=== PATIENT | male | born 1950 | race Caucasian/White ===

== ENCOUNTER → 2021-03-23 | Outpatient (CLI) | payer MEDICARE, OTHER | END | disposition home or self-care (01) | LOC: LABPAT 13:43 | PROVIDERS: ATTEND Orthopaedic Surgery Orthopaedic Surgery of the Spine | DX: Z01.812 Encounter for preprocedural laboratory examination (principal); M48.00 Spinal stenosis, site unspecified | CPT/HCPCS: 87070 ==

== ENCOUNTER 2021-03-27 11:22 | Day surgery (SDC) | payer MEDICARE, OTHER ==
[2021-03-23 10:31] VITALS: BMI 28.7
[~2021-03-27 11:22] MED LIST: DEXAMETHASONE SOD PHOSPHATE 4 MG/ML 1 ML VIAL IV ONE; LIDOCAINE 1% (10MG/ML) FOR IV START INTRADERMA PRN; MIDAZOLAM 2 MG/2 ML VIAL IV PRN; ONDANSETRON 4 MG/2 ML VIAL IVP ONE; ceFAZolin 1,000 MG in SODIUM CHLORIDE 0.9% IRRIGATIO 1,000 ML IRRIGATION PRN
[2021-03-27] MEDS: LACTATED RINGERS 1,000 ML IV SCH (12:20)
[2021-03-27] MEDS ORDERED: fentaNYL (PF) 50 MCG/ML 2 ML AMP ONE (13:53)
[2021-03-27] MEDS ORDERED: PROPOFOL 10 MG/ML 20 ML VIAL IV ONE (13:53)
[2021-03-27] MEDS ORDERED: ePHEDrine SULFATE/0.9% NACL/PF 50 MG/5 ML SYRINGE IV ONE (13:53)
[2021-03-27] MEDS ORDERED: PHENYLEPHRINE-0.9% NACL SYG 1,000 MCG/10 ML SYRINGE ONE (13:53)
[2021-03-27] MEDS ORDERED: SUCCINYLCHOLINE CHLORIDE 100 MG/5 ML SYR IV ONE (13:53)
[2021-03-27] MEDS ORDERED: MIDAZOLAM 2 MG/2 ML VIAL ONE (13:53)
[2021-03-27] MEDS ORDERED: VASOPRESSIN 20 UNIT/ML 1 ML VIAL ONE (13:53)
[2021-03-27] MEDS ORDERED: WATER FOR INJECTION, STERILE 10 ML VIAL IV ONE (13:53)
[2021-03-27] MEDS ORDERED: LIDOCAINE 1% INJ 10MG/ML (20 ML MDV) ONE (13:53)
[2021-03-27] MEDS ORDERED: LACTATED RINGERS 1,000 ML IV ONE ×5 (14:30→20:00)
[2021-03-27] MEDS ORDERED: THROMBIN (BOVINE) 5,000 UNIT VIAL TOPICAL ONE (14:31)
[2021-03-27] MEDS ORDERED: GELATIN SPONGE,ABSORB (LARGE) 1 EACH SPONGE TOPICAL ONE (14:31)
[2021-03-27] MEDS ORDERED: LIDOCAINE 2%-EPI 1:100,000 20 ML VIAL SQ ONE ×2 (14:31)
[2021-03-27] MEDS ORDERED: BENZOCAINE/MENTHOL LOZENG 1 EACH LOZENGE MUCOUS MEM PRN (17:54)
[2021-03-27] MEDS ORDERED: ACETAMINOPHEN TAB 325 MG TAB PO PRN (17:54)
[2021-03-27] MEDS ORDERED: HYDROmorphone 0.5 MG/0.5 ML SYRINGE IVP PRN (17:54)
[2021-03-27] MEDS ORDERED: ONDANSETRON 4 MG/2 ML VIAL IVP PRN (17:54)
[2021-03-27] MEDS ORDERED: MAGNESIUM HYDROXIDE 2,400 MG/10 ML CUP PO PRN (17:54)
[2021-03-27] MEDS ORDERED: CYCLOBENZAPRINE 10 MG TAB PO PRN (17:54)
[2021-03-27] MEDS ORDERED: SODIUM CHLORIDE 0.9% 1,000 ML IV SCH (18:00)
--- NOTE | 2021-03-27 18:02 | P.OP ---
Date of Procedure: 03/27/21 Preoperative Diagnosis: Severe spinal stenosis L3 4 L4 5, spondylolisthesis L4 5, lower extremity radiculopathy, lower extremity weakness, neurogenic claudication, degenerative disc disease Postoperative Diagnosis: Same Anesthesia: GETA Pathology: none sent Condition: stable Disposition: PACU Description of Procedure: DESCRIPTION OF PROCEDURE(S): BRIEF OPERATIVE NOTE Preoperative Diagnosis: Severe spinal stenosis L3 4 L4 5, spondylolisthesis L4 5, lower extremity radiculopathy, lower extremity weakness, neurogenic claudication, degenerative disc disease Postoperative Diagnosis:Severe spinal stenosis L3 4 L4 5, spondylolisthesis L4 5, lower extremity radiculopathy, lower extremity weakness, neurogenic claudication, degenerative disc disease Procedure: CT navigation intraoperatively for hardware placement Laminectomy and decompression L3 4 L4 5 with foraminotomies Minimally invasive Posterior lateral decompression and facet fusion L3 4 L4 5 Minimally invasive Transforaminal lumbar interbody fusion for a 360 fusion L3 4 L4 5 Discectomy for decompression L3 4 L4 5 Placement of interbody graft L3 4 L4 5 Local autogenous bone grafting Harvesting of bone marrow aspirate the pedicle of L3 on the right Use of Cell Saver Use of bone graft extenders Surgeon: Dr. Cuevas Clearance Cutter: Yang MCCLELLAN who is present throughout the entire the case persistence during positioning, dissection, exposure, visualization, and all crucial elements of the case as well as closure. Anesthesia: General anesthesia Estimated blood loss: Approximately 250 mL Complications: None apparent Components implanted: K2M minimally invasive [place] pedicle screw system with 6.5 x 50 mm screws 2 rods and 2 [place] interbody cages with bio4 osteo amp and DBX bone putty boats to supplemental local autogenous bone graft and bone marrow aspirate Disposition: To recovery room in good stable condition. OPERATIVE INDICATIONS The patient has had long-standing issues in their lower back and lower extremities. He was having worsening pain in his back and his lower extremity is with claudication and lower extremity radiculopathy with weakness. His found have severe stenosis L3 4 and L4 5 which correlated well with his low back and lower extremity symptoms. He is not having any lasting benefit despite aggressive conservative treatment and was having worsening symptoms despite his care. The patient has been through conservative treatment. We discussed various treatment options including surgery, and the patient wishes to proceed with surgery We discussed the risk, patient's alternatives and benefits of surgery including but not limited to, risk of bleeding risk of infection, risk of need for further surgery, risk of decreased, loss of motion, muscle function, malunion nonunion, hardware failure, nerve damage, paralysis, heart attack, blindness and . OPERATIVE SUMMARY After discussing all the risks, patient alternatives and benefits at length, the patient elected to proceed with surgical intervention, signed informed consent, and presented for their procedure. The patient was seen and examined in the preoperative holding area and the surgical site was marked. The patient was given antibiotics and brought to the operating room. The patient was sedated and intubated by anesthesia in standard fashion. The patient was positioned on to the operating room table in a prone position on the appropriate frame which was well-padded and well molded. We were careful to pad any bony prominences and pressure points. We were careful to maintain the patient's cervical spine and good neutral alignment and position throughout. The patient was prepped and draped in a normal standard fashion. An appropriate timeout and keystone protocol performed. We were able to proceed with the surgery. The local wound area was infiltrated with local anesthetic. I was able utilize C-arm guidance to establish appropriate position over the pedicles bilaterally at the appropriate levels at L3 4 and L4 5. With the appropriate levels confirmed was able to make small stab incisions over the appropriate pedicle sites bilaterally. Utilizing C-arm in his house able to establish a Jamshidi needle over the lateral aspect of the pedicle and advanced the trocar into the pedicle being careful not to breech superiorly inferiorly medially or laterally. Position was confirmed regularly with AP and lateral images on C-arm. I was able to establish the trocar into the pedicle appropriately into the posterior aspect of the vertebral body bilaterally at the appropriate levels at L3 and L4 5 bilaterally. This was done at each of the pedicle positions and each of the vertebrae. I was able place the guidewire into the trocar and into the vertebral body appropriately under C-arm guidance. Dissection was taken down over the wire to the appropriate starting position for the screw placed. The appropriate length screw was chosen, threaded over the guidewire and screwed appropriately into the pedicle and vertebral body under C- arm guidance in excellent alignment and position with good bony purchase. This is done at each of the screw sites at the appropriate levels at L3 4 and L4 5. With the screws intact I extended the incision to connect the screw hole sites on the most symptomatic side on the right. I dissected down to establish access over the pars and lamina to the base of the spinous process. I was able to expose the facet joint. The capsule the facet was taken down and showed some severe facet arthrosis at the joint. Note was made of severe's stenosis and severe thickening of ligamentum flavum. I was able to use a combination of curettes and Kerrison rongeurs and a high-speed drill to take down the facet joint and do a facetectomy. Partial laminectomy was also performed. I was able get excellent foraminal decompression and central decompression with undermining across midline to perform a laminectomy centrally and contralaterally. I was able get good central decompression. The ligamentum flavum was taken down to further decompress centrally and at bilateral neural foramen. I was able to expose the disc space and visualize the traversing nerve root. Note was made of some disc protrusion at the level causing further compression of the nerve root. I was able to establish a annulotomy at the appropriate level protecting soft tissue and neural structures. Note was made of some disc desiccation at the disc. I performed a complete discectomy with accommodation of curettes and rasps and scrapers. I was able get good endplate preparation at the disc space. I sized for the appropriate size interbody spacer protecting the soft tissue and neural structures. The wound was copiously irrigated and suctioned dry. There is no evidence of any dural tear or leak. I was able to pack the disc space with local autogenous bone graft as well as a small amount of bone graft which was also placed into the interbody cage itself. Protecting the soft tissue structures and neural structures I was able place the interbody cage in good alignment and good position with good fit and fill at the interbody space. His issues was confirmed with C-arm guidance. Good hemostasis maintained. There is no evidence of any dural tear or leak. The wound was irrigated and suctioned dry. This was done first at L4 5 and then at L3 4 similarly With the hardware intact, intraoperative C-arm imaging was again taken which showed good alignment and position of the hardware at the appropriate levels at L3 4 and 5. We were then able to measure, contour and place the rods and appropriate hardware bilaterally. I was able to place capcrews, tighten them down, and torque them with the torque screwdriver appropriately. With this intact I was able to place the local autogenous bone graft with additional bone graft enhancer as necessary into the posterior lateral gutters over the decorticated transverse processes. The remainder of the bone graft was placed over the facet joint on the contralateral side after taking down the facet joint capsule. With the bone graft intact, a stable construct, and good decompression at the appropriate levels, we were able to proceed with closure. Good hemostasis was maintained. There is no evidence of dural tear or leak. The fascia was closed for a watertight closure. he subcuticular tissue was closed with absorbable suture. The wound was cleaned and dried and dressed with the appropriate dressing. The drapes were broken down. The patient was gently rolled back onto their hospital bed being careful to maintain their cervical spine and good neutral alignment and position. They were woken up by anesthesia, extubated, and brought to the recovery room in good stable condition. The patient will be admitted to the hospital for appropriate postoperative care, medical management and monitoring. We will continue to follow them closely about the postoperative course.
[2021-03-27] MEDS: HYDROmorphone 0.5 MG/0.5 ML SYRINGE IVP PRN ×2 (18:09→19:07)
--- NOTE | 2021-03-27 20:54 | FL ---
EXAMINATION TYPE: FL guidance operating room DATE OF EXAM: 03/27/2021 HISTORY: Fluoroscopy time 40 seconds of fluoroscopy provided. IMPRESSION: 1. Fluoroscopy time.
[2021-03-27] MEDS: HYDROmorphone 1 MG/ML 1 ML SYRINGE IVP PRN (21:54)
[2021-03-27] MEDS ORDERED: ZOLPIDEM 10 MG TAB PO PRN (21:58)
[2021-03-28] MEDS: HYDROmorphone 1 MG/ML 1 ML SYRINGE IVP PRN (01:45)
[2021-03-28] MEDS: HYDROcodone/APAP 5-325MG 1 EACH TAB PO PRN ×2 (06:16→12:13)
[2021-03-28] MEDS ORDERED: ALBUTEROL NEBULIZED 2.5 MG/3 ML INHALATION SCH (08:00)
[2021-03-28 08:20] VITALS: RESP 18
[2021-03-28 08:40] VITALS: BP 138/73; PULSE 94; TEMP 97.9
--- NOTE | 2021-03-28 08:58 | P.DS ---
Providers Date of admission: 03/27/2021 Expected date of discharge: 03/28/21 Attending physician: Venu Cuevas Consults: 03/27/21 17:54 Consult Physician Routine Consulting Provider: Luke Pearce Consult Reason/Comments: Medical management Do you want consulting provider notified?: Yes Primary care physician: Emily Lewis - Discharge Diagnosis(es) (1) Lumbar spinal stenosis Current Visit: Yes Status: Acute (2) Spondylolisthesis at L4-L5 level Current Visit: Yes Status: Acute (3) Lumbar degenerative disc disease Current Visit: Yes Status: Acute (4) Radiculopathy with lower extremity symptoms Current Visit: Yes Status: Acute (5) Lower extremity weakness Current Visit: Yes Status: Acute (6) Hypertension Current Visit: Yes Status: Acute (7) Hyperlipidemia Current Visit: Yes Status: Acute (8) Status post lumbar spinal fusion Current Visit: Yes Status: Acute Hospital Course: This is a pleasant 70-year-old male who presented with L3-4 and L4-5 severe spinal canal stenosis, L4-5 spondylolisthesis, lower extremity radiculopathy and weakness, lumbar degenerative disc disease, and neurogenic claudication who failed outpatient conservative therapy. He was admitted for an L3-4 and L4-5 minimally invasive posterior lateral decompression and fusion with transforaminal lumbar interbody fusion. The patient tolerated the procedure well and did well postoperatively. Condition on day of discharge stable. He states shortly after surgical intervention last night he was able to ambulate to the restroom and was able to void independently without difficulty. He was able to eat food last night and again this morning without difficulty. He states he did receive Dilaudid last night for pain control but he did not prefer this medication. His pain has been adequately controlled with oral hydrocodone. He feels his pain is well-controlled regards to his lumbar spine. He is not having any increased back pain postoperatively as he did compared to prior to surgical intervention. He has some tiredness in the legs with prolonged ambulation but states his lower extremity pain is well-controlled. He is not having specific weakness of bilateral lower extremity is. He feels he is doing well postoperatively and is ready for discharge home today. He does have a walker at home which he may use a knee ambulation as needed. He has been seen and examined by medicine. We discussed he must be cleared by medicine prior to discharge home. Patient will be discharged home. Patient was cleared preoperatively for surgery by Dr. Lewis. Patient currently denies any nausea, vomiting, fever, or chills. Patient is eating and voiding freely without difficulty. Patient may shower Optifoam dressing intact. Patient may remove Optifoam dressing in 3 days and shower without a dressing at that time. Patient should refrain from driving until at least after their first follow-up appointment in the office. Patient should avoid excessive bending, lifting, and twisting; no lifting greater than 10 pounds. MAPS has been reviewed today, , with an Overall Overdose Risk Score of . An "Opiod Start Talking" Form has been signed and placed in the patient's chart. A prescription has been written for [place] 5 mg/325 mg 1 tab every 4 hours as needed for pain, dispensed #42. Patient should discontinue previously prescribed [place] while taking new prescription for [place] 5 mg/325 mg. He is also given a prescription for baclofen 10 mg 1 tab 3 times a day as needed for muscle spasm, dispensed #90. He should avoid anti-inflammatory medication over the next 6 weeks postoperatively. Patient may resume other previously prescribed home medications. Patient's other medical diagnoses include hypertension and hyperlipidemia. Physical Exam on day of discharge: Patient is awake, alert, and oriented 3 Vital signs stable Good chest excursion with deep inspiration and expiration No signs or symptoms of DVT; no calf pain Extensor hallucis longus, plantarflexion, and dorsiflexion positive sustained bilateral lower extremities Incision sites are clean, dry, and intact; no erythema, purulence, or signs of infection Optifoam dressings intact No pain with palpation over the incision sites Patient is able to change positions in bed independently without difficulty Procedures: L3-4 and L4-5 minimally invasive posterior lateral decompression and fusion with transforaminal lumbar interbody fusion Patient Condition at Discharge: Stable Plan - Discharge Summary Discharge Rx Participant: Yes New Discharge Prescriptions: New Baclofen [Lioresal] 10 mg PO TID PRN #90 tablet PRN Reason: Muscle Spasm HYDROcodone/APAP 5-325MG [[place] 5] 1 each PO Q4HR PRN #42 tab PRN Reason: Pain No Action Zolpidem [Ambien] 10 mg PO HS PRN PRN Reason: SLEEP HYDROcodone/APAP 7.5-325MG [[place] 7.5-325] 1 - 2 each PO Q6HR PRN #90 tab PRN Reason: Pain Ibuprofen 200 mg PO DAILY lisinopriL [Zestril] 40 mg PO DAILY Multivit-Min/Folic/Vit K/Lycop [Men's Multivitamin Tablet] 1 each PO DAILY Allopurinol [Zyloprim] 300 mg PO DAILY amLODIPine [Norvasc] 10 mg PO DAILY Gabapentin [Neurontin] 300 mg PO HS Atorvastatin [Lipitor] 40 mg PO HS Albuterol Inhaler [Ventolin Hfa Inhaler] 1 puff INHALATION DAILY Discharge Medication List Zolpidem [Ambien] 10 mg PO HS PRN 08/26/14 [History] HYDROcodone/APAP 7.5-325MG [[place] 7.5-325] 1 - 2 each PO Q6HR PRN #90 tab 09/08 [Rx] Albuterol Inhaler [Ventolin Hfa Inhaler] 1 puff INHALATION DAILY 03/23/21 [History] Allopurinol [Zyloprim] 300 mg PO DAILY 03/23/21 [History] Atorvastatin [Lipitor] 40 mg PO HS 03/23/21 [History] Gabapentin [Neurontin] 300 mg PO HS 03/23/21 [History] Ibuprofen 200 mg PO DAILY 03/23/21 [History] Multivit-Min/Folic/Vit K/Lycop [Men's Multivitamin Tablet] 1 each PO DAILY 03/23/21 [History] amLODIPine [Norvasc] 10 mg PO DAILY 03/23/21 [History] lisinopriL [Zestril] 40 mg PO DAILY 03/23/21 [History] Baclofen [Lioresal] 10 mg PO TID PRN #90 tablet 03/28/21 [Rx] HYDROcodone/APAP 5-325MG [[place] 5] 1 each PO Q4HR PRN #42 tab 03/28/21 [Rx] Follow up Appointment(s)/Referral(s): Yang Zamora, ALYSON [PHYSICIAN CORK MOLDER] - 2 Weeks (Patient may follow-up with Yang Zamora PA-C or Dr. Yefri Cuevas at [facility] in 2-3 weeks following discharge. ) Activity/Diet/Wound Care/Special Instructions: 1. Patient may shower with Optifoam dressing intact. 2. Patient may remove Optifoam dressing in 3 days and shower without a dressing at that time. 3. Patient should refrain from driving until at least after their first follow- up appointment in the office. 4. Patient should avoid excessive bending, twisting, lifting; avoid overhead lifting; no lifting greater than 10 pounds 5. Patient may use walker to clay dry press helper in ambulation as needed 6. Take medications as prescribed 7. Do not soak in tub Discharge Disposition: HOME SELF-CARE
[2021-03-28] MEDS ORDERED: lisinopriL 20 MG TAB PO SCH (09:00)
[2021-03-28] MEDS ORDERED: SENNOSIDES-DOCUSATE SODIUM 1 EACH TAB PO SCH (09:00)
[2021-03-28] MEDS ORDERED: allopurinoL 300 MG TAB PO SCH (09:00)
[2021-03-28] MEDS ORDERED: amLODIPine 10 MG TAB PO SCH (09:00)
[2021-03-28 11:19] LABS: HCT 37.9 % (39.6-50.0); HGB 12.5 g/dL (13.0-17.0); MCH 33.2 pg (27.0-32.0); MCV 100.5 fL (80.0-97.0); Mean Platelet Volume 11.2 fL (9.5-12.2); Platelet Count 176 X 10*3/uL (140-440); RBC 3.77 X 10*6/uL (4.40-5.60); RDW 13.2 % (11.5-14.5)
[2021-03-28] MEDS: LACTATED RINGERS 1,000 ML IV SCH (11:46)
[2021-03-28 12:13] LABS: Basophils # (A) 0.03 X 10*3/uL (0.00-0.10); Basophils % (A) 0.3 %; Eosinophils # (A) 0 X 10*3/uL (0.04-0.35); Eosinophils % (A) 0 %; Lymphocytes # (A) 1.25 X 10*3/uL (0.90-5.00); Lymphocytes % (A) 10.4 %; Monocytes # (A) 1.26 X 10*3/uL (0.20-1.00); Monocytes % (A) 10.5 %; Neutrophils # (A) 9.39 X 10*3/uL (1.80-7.70); Neutrophils % (A) 78.2 %
[2021-03-28 13:53] LABS: Anion Gap 11.9 mmol/L (4.00-12.00); Calcium 8.6 mg/dL (8.7-10.3); Carbon Dioxide 24.1 mmol/L (21.6-31.8); Non-African American GFR(CKD) 75.9 (60.0-200.0); Potassium 4.4 mmol/L (3.5-5.5)
--- NOTE | 2021-03-28 20:32 | P.CONS ---
History of Present Illness - Reason for Consult Consult date: 03/28/21 Medical management Requesting physician: Venu Cuevas - Chief Complaint Back surgery - History of Present Illness Consultation: This is a pleasant 70-year-old patient who follows with Dr. Emily Lewis. Chronic stable medical conditions include hypertension, hyperlipidemia, gout, chronic nicotine dependence. Patient in August of this year started off with lower back pain that was somewhat sudden onset. Going down both his legs. Was having trouble walking. Symptoms have been progressive. Conservative treatment did not work. Finally decided to proceed with surgery. Patient is found to have severe spinal stenosis L3 to L5 spondylolisthesis, but extremity ra diculopathy, neurogenic claudication. Patient underwent surgical intervention of the same yesterday. Today, having some lower back pain. Put no radiation down the legs. Feels a bit better. No nausea vomiting. Has made urine. No cardiac history. Review of systems: GEN.: None EYES: None HEENT: None NECK: None RESPIRATORY: None CARDIOVASCULAR: None GASTROINTESTINAL: None GENITOURINARY: None MUSCULOSKELETAL: As above LYMPHATICS: None HEMATOLOGICAL: None PSYCHIATRY: None NEUROLOGICAL: As above Past medical history to include: Hypertension, hyperlipidemia, osteoarthritis, gout, overweight 19 in June 2019, she spinal stenosis, spondylolisthesis, radiculopathy Social history: . Smoked less than a pack day for close to 55 years. Alcohol occasionally. Retired. Had his own company. Family history: COPD, brain aneurysm Physical examination: VITAL SIGNS: Afebrile, 66, 16, 138% 3, 92% room air] GENERAL: BMI 28.5, sitting on bed, comfortable awake. EYES: Pupils equal. Conjunctiva normal. HEENT: External appearance of nose and ears normal, oral cavity grossly normal. NECK: JVD not raised; masses not palpable. HEART: First and second heart sounds are normal; no edema. LUNGS: Respiratory rate normal; clear to auscultation. ABDOMEN: Soft, nontender, liver spleen not palpable, no masses palpable. PSYCH: Alert and oriented x3; mood and affect normal. NEUROLOGICAL: Cranial nerves grossly intact; no facial asymmetry, power and sensation grossly intact. LYMPHATICS: No lymph nodes palpable in the axilla and neck INVESTIGATIONS, reviewed in the clinical context: WBC 12 hemoglobin 12.5 platelets 176 potassium 4.4 creatinine 1.0 Assessment and plan: -Lumbar surgery for spinal stenosis L3 to L5 with spondylolisthesis, claudication -Hyperlipidemia Lipitor 40 mg daily at bedtime -Essential hypertension Zestril 40 mg a day Norvasc 10 mg daily -Primary osteoarthritis Use pain medications as needed -Chronic nicotine dependence cigarette smoker Counseled against smoking -Chronic idiopathic insomnia Uses Ambien when necessary Care was discussed with the patient. Questions answered. Home medications resumed. Patient to follow-up with family doctor upon discharge. Thank Dr. Cuevas Past Medical History Past Medical History: Hyperlipidemia, Hypertension, Osteoarthritis (OA), Pneumonia Additional Past Medical History / Comment(s): Gout, Back Pain, Covid Jun 2019. History of Any Multi-Drug Resistant Organisms: None Reported Past Surgical History: Orthopedic Surgery Additional Past Surgical History / Comment(s): LT CAROTID ENDARTERECTOMY, MULT SURGERIES LT KNEE, RT CARPEL TUNNEL RELEASE, CYSTS ON ELBOW Past Anesthesia/Blood Transfusion Reactions: No Reported Reaction Past Psychological History: No Psychological Hx Reported Smoking Status: Current some day smoker Past Alcohol Use History: Occasional Additional Past Alcohol Use History / Comment(s): SMOKES A FEW CIGARETTES DAILY, HX OF 1 PPD., STARTED SMOKING AT AGE 14 Past Drug Use History: None Reported - Past Family History Father Family Medical History: COPD Additional Family Medical History / Comment(s): BRAIN ANEURYSM Medications and Allergies Home Medications Medication Instructions Recorded Confirmed Type Zolpidem [Ambien] 10 mg PO HS PRN 08/26/14 03/27/21 History Albuterol Inhaler [Ventolin Hfa 1 puff INHALATION DAILY 03/23/21 03/27/21 History Inhaler] Allopurinol [Zyloprim] 300 mg PO DAILY 03/23/21 03/27/21 History Atorvastatin [Lipitor] 40 mg PO HS 03/23/21 03/27/21 History Gabapentin [Neurontin] 300 mg PO HS 03/23/21 03/27/21 History Multivit-Min/Folic/Vit K/Lycop 1 each PO DAILY 03/23/21 03/27/21 History [Men's Multivitamin Tablet] amLODIPine [Norvasc] 10 mg PO DAILY 03/23/21 03/27/21 History lisinopriL [Zestril] 40 mg PO DAILY 03/23/21 03/27/21 History Baclofen [Lioresal] 10 mg PO TID PRN #90 tablet 03/28/21 Rx HYDROcodone/APAP 5-325MG [[place] 5] 1 each PO Q4HR PRN #42 tab 03/28/21 Rx Allergies Allergy/AdvReac Type Severity Reaction Status Date / Time No Known Allergies Allergy Verified 03/23/21 08:56 Physical Exam Vitals: Vital Signs Temp Pulse Pulse Pulse Resp BP BP 03/28/21 08:56 03/28/21 08:19 64 18 03/28/21 08:05 66 16 03/28/21 08:00 97.9 F 94 20 138/73 03/28/21 01:36 98.6 F 85 19 117/75 03/27/21 23:51 89 146/56 03/27/21 23:07 88 116/64 03/27/21 23:05 03/27/21 22:45 03/27/21 22:37 88 124/74 03/27/21 22:27 03/27/21 22:22 89 143/75 03/27/21 22:16 03/27/21 22:09 91 130/71 03/27/21 22:06 03/27/21 22:02 03/27/21 21:59 03/27/21 21:53 88 134/78 03/27/21 21:37 97.6 F 90 152/81 03/27/21 21:00 89 16 03/27/21 20:18 79 16 119/73 03/27/21 19:30 78 16 135/62 03/27/21 19:15 81 16 131/60 03/27/21 18:51 82 16 135/62 03/27/21 18:36 80 16 141/53 03/27/21 18:21 83 16 135/62 03/27/21 18:06 98 F 91 16 118/80 03/27/21 11:56 96.9 F L 93 16 196/83 Pulse Ox 03/28/21 08:56 93 L 03/28/21 08:19 03/28/21 08:05 77 L 03/28/21 08:00 92 L 03/28/21 01:36 94 L 03/27/21 23:51 93 L 03/27/21 23:07 03/27/21 23:05 94 L 03/27/21 22:45 89 L 03/27/21 22:37 93 L 03/27/21 22:27 89 L 03/27/21 22:22 90 L 03/27/21 22:16 85 L 03/27/21 22:09 89 L 03/27/21 22:06 86 L 03/27/21 22:02 88 L 03/27/21 21:59 88 L 03/27/21 21:53 03/27/21 21:37 95 03/27/21 21:00 03/27/21 20:18 93 L 03/27/21 19:30 96 03/27/21 19:15 94 L 03/27/21 18:51 95 03/27/21 18:36 93 L 03/27/21 18:21 92 L 03/27/21 18:06 98 03/27/21 11:56 98 Intake and Output 03/27/21 03/28/21 03/28/21 22:59 06:59 14:59 Intake Total 900 Output Total 475 Balance 425 Intake: IV 900 Output: Urine 225 Estimated Blood Loss 250 Other: Voiding Method Toilet Toilet Urinal # Voids 3 Weight 90 kg Results CBC & Chem 7: 03/28/21 06:37 03/28/21 06:37
[2021-03-28] MEDS ORDERED: GABAPENTIN 300 MG CAP PO SCH (21:00)
[2021-03-28] MEDS ORDERED: ATORVASTATIN 40 MG TAB PO SCH (21:00)
--- NOTE | 2021-03-29 12:23 | XR ---
Fluoroscopy INDICATION: Pain FINDINGS: Fluoroscopy time: 40 seconds. Images obtained: 2. IMPRESSIONS: 1. Documentation of fluoroscopy.
== END 2021-03-28 13:11 | disposition home or self-care (01) ==
LOC: OR 11:22 → 4SSUR 18:15 → OR 03-28 13:11
PROVIDERS: ATTEND Orthopaedic Surgery Orthopaedic Surgery of the Spine
DX: M43.16 Spondylolisthesis, lumbar region (principal); M48.062 Spinal stenosis, lumbar region with neurogenic claudication; M51.16 Intervertebral disc disorders with radiculopathy, lumbar region; I73.9 Peripheral vascular disease, unspecified; M10.9 Gout, unspecified; M19.90 Unspecified osteoarthritis, unspecified site; Z79.899 Other long term (current) drug therapy; F17.210 Nicotine dependence, cigarettes, uncomplicated; E78.5 Hyperlipidemia, unspecified; F51.01 Primary insomnia; I10 Essential (primary) hypertension
CPT/HCPCS: 22633; 22853; 63047; 63048; 94640; 97161; 80048; 85025; 72100; C1713; C1762; J0690 ×3; J2405; J1170 ×3; 86850; 86900; 86901